=== PATIENT | male | born 1995 | race Caucasian/White ===

== ENCOUNTER 2023-05-19 19:58 | Emergency (ER) | payer OTHER ==
[2023-05-20 01:00] VITALS: BP 138/75; TEMP 98.6; O2SAT 98
== END 2023-05-20 01:05 | disposition left against medical advice (07) ==
LOC: M ED 19:58
DX: Z53.21 Procedure and treatment not carried out due to patient leaving prior to being seen by health care provider (principal)

== ENCOUNTER 2023-10-30 23:13 | Emergency (ER) | payer OTHER ==
[~2023-10-30] VITALS: Ht 175.3 cm; Wt 102.3 kg
[2023-10-30 23:13] VITALS: BP 153/94; TEMP 98.8; O2SAT 97
[2023-10-30] MEDS ORDERED: CELE50CA PO (23:59)
[2023-10-30] MEDS ORDERED: MELO15TA28 PO (23:59)
[2023-10-30] MEDS ORDERED: METH-1165 PO (23:59)
[2023-10-30] MEDS ORDERED: IBUP200C33 PO (23:59)
[2023-10-30] MEDS ORDERED: GABA-282 PO (23:59)
== END 2023-10-31 02:57 | disposition left against medical advice (07) ==
LOC: M ED 23:13
DX: Z53.21 Procedure and treatment not carried out due to patient leaving prior to being seen by health care provider (principal)

== ENCOUNTER → 2025-03-19 | Outpatient (CLI) | payer OTHER ==
[~2025-03-19] MED LIST: CELE50CA17 PO; GABA-1172 PO; IBUP200C33 PO; ISOVUE-300 61% 100 ML VIAL As Ordered ONE; LIDOCAINE 1% MDV 20 ML VIAL As Ordered ONE; MELO15TA28 PO; METH-1165 PO; PROHANCE 279.3MG/ML 5ML VIAL As Ordered ONE
== END ==
LOC: M RAD 06:50
PROVIDERS: ATTEND Physician Assistant
DX: S40.912A Unspecified superficial injury of left shoulder, initial encounter (principal); M19.012 Primary osteoarthritis, left shoulder; Y92.9 Unspecified place or not applicable; Y93.9 Activity, unspecified; Y99.9 Unspecified external cause status; X58.XXXA Exposure to other specified factors, initial encounter
CPT/HCPCS: 23350; 73223; 77002; A9576; Q9967